=== PATIENT | female | born 1965 | race Caucasian/White ===

== ENCOUNTER 2020-12-16 12:53 | Outpatient (CLI) | payer MEDICARE, SELFPAY ==
--- NOTE | ~2020-12-16 | MM_ITS ---
EXAMINATION: MM screening ramy BI w [facility] HISTORY: Screening mammogram TECHNIQUE: Craniocaudal and mediolateral oblique 3-D tomosynthesis images were obtained and synthetic 2-D images were generated. CAD analysis was submitted and interpreted. COMPARISON: 02/07/2018, 06/11/2015, 10/24/2013 bilateral digital screening mammogram examinations BREAST PARENCHYMAL COMPOSITION: The breasts are almost entirely fatty. FINDINGS: There is no evidence of suspicious mass, calcification, or architectural distortion to sugg est malignancy in either breast. There has been no suspicious interval change. IMPRESSION: 1. No mammographic evidence of malignancy. 2. Recommend routine screening mammography in one year. BI-RADS Category 1: Negative Reviewed, dictated and finalized at location A.
== END 2020-12-16 12:54 | disposition home or self-care (01) ==
PROVIDERS: PCP Internal Medicine; Visit Provider Internal Medicine
DX: Z12.31 Encounter for screening mammogram for malignant neoplasm of breast (principal)
CPT/HCPCS: 77063; 77067

== ENCOUNTER → 2021-01-05 11:12 | Outpatient (CLI) | payer MEDICARE, SELFPAY ==
--- NOTE | ~2021-01-05 | XR_ITS ---
EXAMINATION: XR elbow LT 2V INDICATION: Left elbow pain TECHNIQUE: Four views of the left elbow were obtained. COMPARISON: None available FINDINGS: There is no fracture, dislocation, or subluxation. The bones, soft tissues, and joint space s are normal. IMPRESSION: 1. No acute osseous abnormality. Reviewed, dictated and finalized at location B. [facility]
== END ==
PROVIDERS: PCP Internal Medicine; Visit Provider Internal Medicine
DX: M25.522 Pain in left elbow (principal)
CPT/HCPCS: 73070

== ENCOUNTER → 2021-04-24 00:24 | Outpatient (CLI) | payer MEDICARE, SELFPAY ==
[2021-04-24 17:38] LABS: SARS-CoV-2 RNA PCR Negative
== END ==
PROVIDERS: PCP Internal Medicine; Visit Provider Internal Medicine Gastroenterology
DX: Z20.822 Contact with and (suspected) exposure to COVID-19 (principal)
CPT/HCPCS: C9803; U0003; U0005

== ENCOUNTER 2021-04-27 00:48 | Day surgery (SDC) | payer MEDICARE, SELFPAY ==
[2021-04-14 13:11] VITALS: BMI 37.0
[2021-04-27 10:02] VITALS: BP 141/89; PULSE 73; RESP 20; TEMP 36.2; O2SAT 98; BMI 36.1
[2021-04-27] MEDS: LACTATED RINGERS 1,000 ML 150 ML IV CONT (10:11)
--- NOTE | 2021-04-27 10:14 | WPDGICN ---
Assessment and Plan Assessment and plan (1) Family history of colon cancer in father: Code(s): Z80.0 - Family history of malignant neoplasm of digestive organs Status: Acute Assessment and Plan: Patient has a family history of colon cancer in her father. Plan is for surveillance colonoscopy now and consider this at 5 year intervals in the future. GI Consult Note Consult date/time: 04/27/21 10:14 HPI: Iman Young is a 55 year old female Presents for colonoscopy. Patient's family history is significant her father had colon cancer. Patient reports that her current weight appetite and bowel movements are normal. She denies abdominal pain. She has had no bleeding. In the past she has been treated for GE reflux disease. Review of Systems Review of Systems: All systems reviewed & are unremarkable except as noted in HPI and below PMFSH Past Medical History Medical History Acid reflux Acquired cavovarus deformity of right foot Asthma Chlamydia Depression Hair loss Hammertoe of right foot SOB (shortness of breath) Stroke Thyroid cancer Wears glasses Weight gain Wheezing Surgical History Surgical History H/O LEEP H/O thyroidectomy History of appendectomy History of Family History Family History Mother Hypertension Sibling Patient's sister is in good health Father Patient's father is Hypertension Carcinoma of colon Other Asthma Cerebrovascular accident Diabetes mellitus Social History Social History Smoking status: Never smoker Second hand tobacco smoke exposure: No Alcohol intake: current Drinks per week: 3 Substance use: current Substance use type: does not use Living arrangements: alone Gender identity (if verbalized by the patient): Female Spiritual care concerns: No Meds Home Medications and Allergies Home Medications Medication Instructions Recorded Confirmed Type aspirin 325 mg tablet 325 mg PO DAILY 01/31/19 04/14/21 History multivitamin 1 tablet PO DAILY 01/31/19 04/14/21 History vitamin B complex 1 tablet PO DAILY 01/31/19 04/14/21 History albuterol sulfate 90 mcg/actuation 2 inh INHALATION Q4-6H PRN #25.5 g 04/08/20 04/14/21 Rx aerosol inhaler citalopram 20 mg tablet 40 mg PO DAILY #180 tablet 10/15/20 04/14/21 Rx levothyroxine 150 mcg tablet 150 mcg PO DAILY #90 tablet 10/15/20 04/14/21 Rx esomeprazole magnesium 20 mg 20 mg PO DAILY 01/05/21 04/14/21 History tablet,delayed release Symbicort 160 mcg-4.5 2 puff INHALATION Q12H #10.2 g NS 04/13/21 04/14/21 Rx mcg/actuation HFA aerosol inhaler Allergies Allergy/AdvReac Type Severity Reaction Status Date / Time No Known Allergies Allergy Unknown Verified 04/27/21 09:49 Vital Signs Vital Signs - 24 hr 04/27/21 10:02 Temperature 97.2 F L Pulse Rate 73 Respiratory Rate 20 Blood Pressure 141/89 H Pulse Oximetry 98 Exam Narrative: Physical exam reveals patient to be alert. Vital signs stable. HEENT exam is unremarkable. Patient is anicteric. Lungs are clear to auscultation and percussion. Heart is without murmur or extra sounds. Abdominal exam bowel sounds are present soft nontender with no hepatosplenomegaly. Digital external rectal exam is normal.
--- NOTE | 2021-04-27 10:30 | WPDANESEPPF ---
Anes - Initial Pre Proc Eval Procedure: Operation Date: 04/27/21 11:00 Proposed Procedures p Screening Colonoscopy - Gabo Villasenor MD Date/Time: 04/27/21 10:30 Surgeon: Gabo Villasenor MD Pre Op Diagnosis: neoplasm screening Patient Data Age: 55 Gender: F Height: 1.63 m Weight: 95.5 kg Last Vital Signs Temp 97.2 F L 04/27/21 10:02 Pulse 73 04/27/21 10:02 Resp 20 04/27/21 10:02 BP 141/89 H 04/27/21 10:02 Pulse Ox 98 04/27/21 10:02 Allergies Allergy/AdvReac Type Severity Reaction Status Date / Time No Known Allergies Allergy Unknown Verified 04/27/21 09:49 Home Medications Medication Instructions Recorded Confirmed Type aspirin 325 mg tablet 325 mg PO DAILY 01/31/19 04/14/21 History multivitamin 1 tablet PO DAILY 01/31/19 04/14/21 History vitamin B complex 1 tablet PO DAILY 01/31/19 04/14/21 History albuterol sulfate 90 mcg/actuation 2 inh INHALATION Q4-6H PRN #25.5 g 04/08/20 04/14/21 Rx aerosol inhaler citalopram 20 mg tablet 40 mg PO DAILY #180 tablet 10/15/20 04/14/21 Rx levothyroxine 150 mcg tablet 150 mcg PO DAILY #90 tablet 10/15/20 04/14/21 Rx esomeprazole magnesium 20 mg 20 mg PO DAILY 01/05/21 04/14/21 History tablet,delayed release Symbicort 160 mcg-4.5 2 puff INHALATION Q12H #10.2 g NS 04/13/21 04/14/21 Rx mcg/actuation HFA aerosol inhaler Patient hx anesthesia problems: none Family hx anesthesia problems: none Results Review: All pre-operative results and documents have been reviewed as part of the pre-operative evaluation. [facility] Past Medical History Medical History Acid reflux Acquired cavovarus deformity of right foot Asthma Chlamydia Depression Hair loss Hammertoe of right foot SOB (shortness of breath) Stroke Thyroid cancer Wears glasses Weight gain Wheezing Surgical History Surgical History H/O LEEP H/O thyroidectomy History of appendectomy History of Family History Family History Mother Hypertension Sibling Patient's sister is in good health Father Patient's father is Hypertension Carcinoma of colon Other Asthma Cerebrovascular accident Diabetes mellitus Social History Social History Smoking status: Never smoker Second hand tobacco smoke exposure: No Alcohol intake: current Drinks per week: 3 Substance use: current Substance use type: does not use Living arrangements: alone Gender identity (if verbalized by the patient): Female Spiritual care concerns: No Anes - Eval Final PreProcedure Day of Procedure 04/27/21 10:30 Patient weight: obese Heart: regular rate and rhythm Lungs: clear to auscultation Airway: Mallampati scale class III Neurological: alert and oriented Last oral intake: >/= 8 hours ASA classification: III Emergent: no Anesthetic plan: proceed Anesthesia type and monitoring: general GIVS and standard monitoring Results Review: All pre-operative results and documents have been reviewed as part of the pre-operative evaluation. Informed Consent: The patient's anesthetic plan and its attendant risks and benefits were discussed with the patient/family/POA. Questions were solicited and answers provided to the satisfaction of the patient/family/POA.
[2021-04-27] MEDS: SIMETHICONE ORAL SUSPENSION 20 MG/0.3 ML 30 ML BOTTLE 0.6 ML IRRIGATION (10:52)
[2021-04-27 11:03] VITALS: BP 105/71; PULSE 74; RESP 26; O2SAT 98
[2021-04-27 11:13] VITALS: BP 118/72; PULSE 76; RESP 27; O2SAT 97
[2021-04-27 11:23] VITALS: BP 131/88; PULSE 58; RESP 13; O2SAT 98
== END 2021-04-27 11:35 | disposition home or self-care (01) ==
PROVIDERS: PCP Internal Medicine; Visit Provider Internal Medicine Gastroenterology
PROC: 0DJD8ZZ Inspection of Lower Intestinal Tract, Via Natural or Artificial Opening Endoscopic (ICD-10-PCS; CPT 45378; principal; 2021-04-27 11:00)
DX: Z12.11 Encounter for screening for malignant neoplasm of colon (principal); Z80.0 Family history of malignant neoplasm of digestive organs; K64.8 Other hemorrhoids; K57.30 Diverticulosis of large intestine without perforation or abscess without bleeding; Z79.82 Long term (current) use of aspirin; Z79.51 Long term (current) use of inhaled steroids; E03.9 Hypothyroidism, unspecified; K21.9 Gastro-esophageal reflux disease without esophagitis; J45.909 Unspecified asthma, uncomplicated; A74.9 Chlamydial infection, unspecified; Z86.73 Personal history of transient ischemic attack (TIA), and cerebral infarction without residual deficits; Z85.850 Personal history of malignant neoplasm of thyroid; F32.9 Major depressive disorder, single episode, unspecified; E66.9 Obesity, unspecified; Z68.36 Body mass index [BMI] 36.0-36.9, adult
CPT/HCPCS: G0105; J2704; J7120

== ENCOUNTER 2021-12-29 13:49 | Outpatient (CLI) | payer MEDICARE, SELFPAY ==
--- NOTE | ~2021-12-29 | DEXA_ITS ---
Bone Density Report Name: ALMA RINCON Age: 56 Sex: Female Ethnicity: White Date of : 1965 Indication: postmenopausal; screening for osteoporosis; cancer; asthma or emphysema; Referring Provider: SHAYLA GOMEZ Study: Bone densitometry was performed. Exam Date: December 29, 2021 Accession number: [id number] Bone Density: Region BMD T-score Z-score Classification AP Spine(L1-L4) 1.020 -0.2 0.9 Normal Femoral Neck (Left) 0.818 -0.3 0.8 Normal Total Hip (Left) 0.901 -0.3 0.4 Normal Femoral Neck (Right) 0.766 -0.7 0.3 Normal Total Hip (Right) 0.982 0.3 1.0 Normal Total Hip Mean 0.942 0.0 0.7 Normal World Health Organization criteria for BMD impression classify patients as: Normal (T-score at or above -1.0), Osteopenia (T-score between -1.0 and -2.5), or Osteoporosis (T-score at or below -2.5). 10-year Fracture Risk: FRAX not reported because: All T-scores for Spine Total, Hip Total, Femoral Neck at or above -1.0 Clinical Information Provided by Patient: Has the following medical conditions: Asthma or Emphysema, Cancer Patient maximum height was 64 Menopause Age: 55 No regular weight bearing exercise Drinks caffeinated beverages Onset of menses at age 13 Number of children 1 Impression: The patient has normal bone mass. Discussion: BONE DENSITY IS ABOVE THE MINIMUM DESIRABLE LEVEL AT ALL SKELETAL SITES TESTED. This patient?s bone mineral density is above the minimum desirable level (T-score -1.0 or better) at all sites measured. The patient should follow a healthful lifestyle (good nutrition with adequate calcium and vitamin D, and appropriate weight-bearing exercise). Follow-Up: Consider repeating this study in 5 years or sooner if there is some new clinical indication. Reported by: DONNA on 12/29/2021 2:23:00 PM. Reviewed, dictated and finalized at location AJaleel VAZQUEZ
== END 2021-12-29 13:50 | disposition home or self-care (01) ==
PROVIDERS: PCP Internal Medicine; Visit Provider Internal Medicine
DX: Z78.0 Asymptomatic menopausal state (principal); Z13.820 Encounter for screening for osteoporosis
CPT/HCPCS: 77080

== ENCOUNTER 2022-04-13 10:01 | Outpatient (CLI) | payer MEDICARE, SELFPAY ==
--- NOTE | ~2022-04-13 | MM_ITS ---
EXAMINATION: MM screening [facility]amy BI [facility] HISTORY: Screening mammogram TECHNIQUE: Craniocaudal and mediolateral oblique 3-D tomosynthesis images were obtained and synthetic 2-D images were generated. CAD analysis was submitted and interpreted. COMPARISON: 12/16/2020, 02/07/2018, 06/11/2015 bilateral screening mammogram examinations BREAST PARENCHYMAL COMPOSITION: The breasts are almost entirely fatty. FINDINGS: There is no evidence of suspicious mass, calcification, or architectural distortion to sugg est malignancy in either breast. There has been no suspicious interval change. IMPRESSION: 1. No mammographic evidence of malignancy. 2. Recommend routine screening mammography in one year. BI-RADS Category 1: Negative Reviewed, dictated and finalized at location A. [employer]
== END 2022-04-13 10:02 | disposition home or self-care (01) ==
PROVIDERS: PCP Internal Medicine; Visit Provider Obstetrics & Gynecology
DX: Z12.31 Encounter for screening mammogram for malignant neoplasm of breast (principal)
CPT/HCPCS: 77063; 77067

== ENCOUNTER 2024-11-13 01:58 | Day surgery (SDC) | payer MEDICARE, SELFPAY ==
[2024-10-31 10:21] VITALS: BMI 33.5
[2024-11-13 08:35] VITALS: BP 143/96; PULSE 72; RESP 18; TEMP 36.3; O2SAT 100; BMI 33.8
[2024-11-13] MEDS: LACTATED RINGERS 1,000 ML 150 ML IV CONT (08:40)
--- NOTE | 2024-11-13 09:06 | P.PNAN_ITS ---
Anes - Initial Pre Proc Eval Procedure: Operation Date: 11/13/24 09:45 Proposed Procedures p Esophagogastroduodenoscopy - Zachary Small MD Date/Time: 11/13/24 09:06 Surgeon: Zachary Small MD Pre Op Diagnosis: Gastro-esophageal reflux disease without esophagit Patient Data Age: 59 Gender: F Height: 1.63 m Weight: 89.4 kg Last Vital Signs Temp 97.3 F L 11/13/24 08:35 Pulse 72 11/13/24 08:35 Resp 18 11/13/24 08:35 BP 143/96 H 11/13/24 08:35 Pulse Ox 100 11/13/24 08:35 O2 Del Method Room Air 11/13/24 08:35 Allergies Allergy/AdvReac Type Severity Reaction Status Date / Time No Known Allergies Allergy Unknown Verified 11/13/24 08:34 Home Medications ?Medication ?Instructions ?Recorded ?Confirmed ?Type Traincor PO .PRN 01/26/22 07/31/24 Hi story albuterol sulfate 90 mcg/actuation 2 inh inhalation Q4 -6H PRN 05/31/23 10/31/24 Rx aerosol inhaler (Ventolin HFA) shortness of breath or wheezing #25.5 grams fluticasone 250 mcg-salmeterol 50 1 inh inhalation BID #60 ea 05/03/24 11/13/24 Rx mcg/dose blistr powdr for inhalation (Wixela Inhub) levothyroxine 150 mcg tablet 150 mcg PO DAILY #90 tabs 05/15/24 11/13/24 Rx famotidine 40 mg tablet See Rx Instructions .Route 0 10/30/24 11/13/24 Rx .COMPLEX #30 tabs vitamin D3 125 mcg (5,000 cap PO DAILY 10/31/24 Histo ry unit)-vitamin K2 100 mcg capsule Patient hx anesthesia problems: none Family hx anesthesia problems: none Results Review: All pre-operative results and documents have been reviewed as part of the pre- operative evaluation. [facility] Past Medical History Medical History Obesity Hair loss Wheezing Asthma SOB (shortness of breath) Wears glasses Weight gain Acquired cavovarus deformity of right foot Hammertoe of right foot Obesity Herpes zoster BMI 32.0-32.9,adult Stroke Chlamydia Acid reflux Thyroid cancer Depression Surgical History Surgical History History of History of appendectomy H/O thyroidectomy H/O LEEP Family History Family History Mother Hypertension Sibling Patient's sister is in good health Father Patient's father is Hypertension Carcinoma of colon Other Asthma Cerebrovascular accident Diabetes mellitus Social History Social History Smoking status: Never smoker Second hand tobacco smoke exposure: No Alcohol intake: current Drinks per week: 3 Substance use: current Substance use type: does not use Lack of Transportation: No Lack of Food: Never True Current Housing: I Have Housing Concerned About Future Housing: No Difficulty Paying Gas/Electric Bills: No Difficulty Paying for Meds: No Currently Unemployed: No Education: Bachelor's Degree Difficulty w/ Childcare or Family Care: No Living arrangements: alone Gender identity (if verbalized by the patient): Female Spiritual care concerns: No Anes - Eval Final PreProcedure Day of Procedure 11/13/24 09:06 Patient weight: obese Lungs: normal air movement Airway: Mallampati scale class II Neurological: alert and oriented Last oral intake: >/= 8 hours ASA classification: III Emergent: no Anesthetic plan: proceed Anesthesia type and monitoring: general GIVS and standard monitoring Results Review: All pre-operative results and documents have been reviewed as part of the pre- operative evaluation. Hx of thyroid CA, s/p sx and radiation 2003, now on replacement. 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 BMI 33. Informed Consent: The patient's anesthetic plan and its attendant risks and benefits were discussed with the patient/family/POA. Questions were solicited and answers provided to the satisfaction of the patient/family/POA.
--- NOTE | 2024-11-13 09:43 | P.HP_ITS ---
History of Present Illness History of Present Illness Consent: Risks, benefits, and alternatives have been discussed and questions answered. Patient agrees to proceed with procedure. Chief complaint: Gastro-esophageal reflux disease without esophagit Narrative: Iman Young is a 59 year old female with long standing gerd, here for egd Review of Systems Review of Systems: All systems reviewed & are unremarkable except as noted in HPI and below PMFSH Past Medical History Medical History Obesity Hair loss Wheezing Asthma SOB (shortness of breath) Wears glasses Weight gain Acquired cavovarus deformity of right foot Hammertoe of right foot Obesity Herpes zoster BMI 32.0-32.9,adult Stroke Chlamydia Acid reflux Thyroid cancer Depression Surgical History Surgical History History of History of appendectomy H/O thyroidectomy H/O LEEP Family History Family History Mother Hypertension Sibling Patient's sister is in good health Father Patient's father is Hypertension Carcinoma of colon Other Asthma Cerebrovascular accident Diabetes mellitus Social History Social History Smoking status: Never smoker Second hand tobacco smoke exposure: No Alcohol intake: current Drinks per week: 3 Substance use: current Substance use type: does not use Lack of Transportation: No Lack of Food: Never True Current Housing: I Have Housing Concerned About Future Housing: No Difficulty Paying Gas/Electric Bills: No Difficulty Paying for Meds: No Currently Unemployed: No Education: Bachelor's Degree Difficulty w/ Childcare or Family Care: No Living arrangements: alone Gender identity (if verbalized by the patient): Female Spiritual care concerns: No Meds Home Medications and Allergies Home Medications ?Medication ?Instructions ?Recorded ?Confirmed ?Type Traincor PO .PRN 01/26/22 07/31/24 Hi story albuterol sulfate 90 mcg/actuation 2 inh inhalation Q4 -6H PRN 05/31/23 10/31/24 Rx aerosol inhaler (Ventolin HFA) shortness of breath or wheezing #25.5 grams fluticasone 250 mcg-salmeterol 50 1 inh inhalation BID #60 ea 05/03/24 11/13/24 Rx mcg/dose blistr powdr for inhalation (Wixela Inhub) levothyroxine 150 mcg tablet 150 mcg PO DAILY #90 tabs 05/15/24 11/13/24 Rx famotidine 40 mg tablet See Rx Instructions .Route 0 10/30/24 11/13/24 Rx .COMPLEX #30 tabs vitamin D3 125 mcg (5,000 cap PO DAILY 10/31/24 Histo ry unit)-vitamin K2 100 mcg capsule Allergies Allergy/AdvReac Type Severity Reaction Status Date / Time No Known Allergies Allergy Unknown Verified 11/13/24 08:34 Vital Signs Vital Signs - 24 hr 11/13/24 08:35 Temperature 97.3 F L Pulse Rate 72 Respiratory Rate 18 Blood Pressure 143/96 H Pulse Oximetry 100 Oxygen Delivery Room Air Exam Const: General: comfortable and no acute distress HENMT: Face/Nose/Sinus: Normal nares present Eyes: General: appearance normal, both eyes and all related structures Neck: Neck: no JVD Resp: Auscultation: clear to auscultation bilaterally Cardio: Rate: regular rate Rhythm: regular rhythm GI: Inspection: non-distended GI Palp: Yes Soft to palpation Skin: General skin exam: normal color Neuro: Speech: normal speech Extrem: General: normal to inspection Psych: Mental Status: mental status grossly normal Assessment and Plan Assessment and plan (1) Chronic GERD: Code(s): K21.9 - Gastro-esophageal reflux disease without esophagitis Status: Acute Assessment and Plan: egd
--- NOTE | 2024-11-13 09:53 | S_PTH ---
PATIENT: Iman Young LOC: [facility]#:[id number] AGE/SX: 59/F ROOM: RE11/13/[address]: Zachary Small MD : 1965 BED: DIS: 11/13/2024 SPEC #: [id number] RECD: 11/13/24 10:20 STATUS: SUE REClaudia #: [id number] CATA: 11/13/24 09:[address]: Zachary Small DEPT: [facility] Surgical RECD BY: Brinda Cisse ENTERED: 11/13/24 10:21 SP TYPE: Surgical OTHR DR: Julian Ca DO Tissues: A - Gastric Biopsy B - Esophageal Biopsy Procedures: Hematoxylin and Eosin Stain Gross and Microscopic Level 4
[2024-11-13 09:55] VITALS: BP 116/78; PULSE 89; RESP 24; O2SAT 96
[2024-11-13 10:05] VITALS: BP 117/91; PULSE 70; RESP 23; O2SAT 98
[2024-11-13 10:15] VITALS: BP 131/81; PULSE 63; RESP 24; O2SAT 97
== END 2024-11-13 10:20 | disposition home or self-care (01) ==
PROVIDERS: PCP Internal Medicine; Visit Provider Internal Medicine Gastroenterology
PROC: 0DJ08ZZ Inspection of Upper Intestinal Tract, Via Natural or Artificial Opening Endoscopic (ICD-10-PCS; CPT 43239; principal; 2024-11-13 09:45)
DX: K20.0 Eosinophilic esophagitis (principal); K22.2 Esophageal obstruction; K44.9 Diaphragmatic hernia without obstruction or gangrene; J45.909 Unspecified asthma, uncomplicated; F32.A Depression, unspecified; E66.9 Obesity, unspecified; Z68.33 Body mass index [BMI] 33.0-33.9, adult; Z79.51 Long term (current) use of inhaled steroids; Z98.890 Other specified postprocedural states; Z92.3 Personal history of irradiation; Z85.850 Personal history of malignant neoplasm of thyroid; Z86.73 Personal history of transient ischemic attack (TIA), and cerebral infarction without residual deficits; Z80.0 Family history of malignant neoplasm of digestive organs
CPT/HCPCS: 43239; 43249; 88305; C1726; J2704; J7120